=== PATIENT | female | born 1985 | race Caucasian/White ===

== ENCOUNTER 2016-08-24 06:15 | Inpatient (IN) ==
[2016-08-24] MEDS ORDERED: Ringers Solution, Lactated 1,000 ML IVC SCH ×2 (06:45→11:45)
[2016-08-24 06:57] LABS: Basophils % 0.2 %; Eosinophils # 0.2 K/mcL (0.0-0.6); Hematocrit 33.5 % (35.3-44.9); Hemoglobin 10.9 g/dL (11.5-15.4); Immature Granulocytes % 0.4 % (0-4); Lymphocytes # 1.8 K/mcL (0.6-4.6); Mean Corpuscular HGB Conc 32.5 g/dL (31.6-35.5); Mean Corpuscular Hemoglobin 28.3 pg (28.0-33.3); Mean Platelet Volume 10.1 fL (9.4-12.4); Monocytes # 0.6 K/mcL (0.0-1.3); Monocytes % 6.8 %; Neutrophils # 6.7 K/mcL (1.6-8.9); Platelet Count 226 K/mcL (140-400); Red Blood Count 3.85 M/mcL (3.82-4.97); Red Cell Distribution Width 15.3 % (11.5-14.5); Segmented Neutrophils % 71.6 %
--- NOTE | 2016-08-24 07:06 | OB/GYN History & Physical ---
Date of Encounter: 08/24/16 Time of Encounter: 06:54 Assessment and Plan (1) 36 weeks gestation of Current visit: Yes Status: Acute (2) Cervical cerclage suture present in third trimester Current visit: Yes Status: Acute Patient had cerclage placed for incompetent cervix. She has had the same issue with here last 3 prior pregnancies. She is having the cerclage removed in the OR for patient comfort. History of Present Illness Chief complaint: Cerclage Removal HPI: Ms. Hines is a 31 year old female at 36+5 presents to Labor and Delivery for cerclage removal in the OR. Patient had cerclage placement for incompetent cervix. Patient has needed cerclage in her last 4 pregnancies and has requested removal in the OR everytime. Patient reports with her last her placenta was adhered to her uterus and caused significant bleeding with removal. Patient is on 20mg of Prozac daily. Patient's blood type is A+. Patient reports good movement. Patient denies vaginal bleeding, leaking of fluid, contractions, or pain, nausea, vomiting, diarrhea, headache, blurry vision, dysuria. Past Med Surg Social Fam HX - Past Medical History Medical history: non-contributory Psychiatric history: no psych history - Social History Smoking Status: Never smoker Smokeless Tobacco Status: No Alcohol use: none Drug use: none - Family History Mother Family Member Ethnicity: Non- Living Status: Still Living Hx Family Cardiac Disorders: Yes (HTN) Obstetrical History - Pregnancies : 6 Medications and Allergies [facility] + Dha 1 tab PO DAILY 08/24/16 [History] FLUoxetine HCl [Prozac] 1 cap PO DAILY 08/24/16 [History] Allergies lamotrigine [From Lamictal] Adverse Reaction (Intermediate, Verified 08/24/16 06 :59) See Comments patient states her tongue turned black. Review of System OB All systems PM: reviewed and no additional remarkable complaints except as stated Exam - Constitutional Constitutional: well developed, well nourished, no acute distress - HEENT HEENT: EOMI, Mucus Membranes Moist - Neck Neck exam: full ROM, normal inspection - Lungs Respiratory exam: CTAB - Cardiovascular Cardiovascular exam: RRR - Abdomen Abdomen: Present: bowel sounds normal, gravid, non tender (soft) - Extremities Extremities exam: normal inspection Deep Tendon Reflex Grade: 2+ Normal Results Result Diagrams: 08/24/16 06:40 All other labs normal. - VTE Reasons for not Prescribing Prophylaxis: Treatment not Indicated - Low risk for VTE
--- NOTE | 2016-08-24 07:56 | Anesthesia Evaluation PreOp ---
Date of Encounter: 08/24/16 Time of Encounter: 07:52 - Past History Planned Operation: cerclage removal Cardiac History: Denies any Significant Hx Pulmonary History: Denies Any Significant HX TRAFFIC ASSISTANT History: Other (Anxiety/Depression maintained on Prozac) Other Medical History: Denies Any Significant HX Anesthesia History: No Prior Anesthetic Complications, Past Anesthesia (Appy, Ankle Surgery, Cerclage x 4, Cerclage removal x 3, D&C) : Yes (36weeks 5 days) Alcohol Use: none Drug use: none Medications and Allergies [facility] + Dha 1 tab PO DAILY 08/24/16 [History] FLUoxetine HCl [Prozac] 1 cap PO DAILY 08/24/16 [History] Allergies lamotrigine [From Lamictal] Adverse Reaction (Intermediate, Verified 08/24/16 06 :59) See Comments patient states her tongue turned black. - Meds/Allergy Pre-op Review Medications Reviewed: Yes Allergies Reviewed: Yes Beta Blockers on Current Med List: No Anesthesia Results - Labs 08/24/16 06:40 Anesthesia Exam see nursing notes Height: 5'5 Weight: 180# NPO (# of Hours): MNOc - HEENT Pupil (Motor): Pupils equal, EOMI Mallampati: I Teeth: Normal Oral Opening: Greater than 3 - TRAFFIC ASSISTANT LOC: Oriented TRAFFIC ASSISTANT Motor: Normal RUE, Normal LUE, Normal RLE, Normal LLE, Normal Face TRAFFIC ASSISTANT Sensory: Normal: RUE, LUE, RLE, LLE, Face - Cardiac Rhythm: Regular Murmur: None - Pulmonary Breath Sounds: bilateral Clear Respiratory Effort: Symmetrical Anesthesia Assess/Plan ASA Score: 2 (Anxiety/Depression, Term IUP in parturient w/ hx of Labor) Modified Stanton Scale for Level of Consciousness: Cooperative, oriented, and tranquil Anesthetic Plan: MAC Monitoring Plan: Standard Monitors Recovery Plan: PACU Anes Supervising Prov Stmt: Pt seen/evaluated, R&B Discussed, questions answered and consent obtained.Aracelis Barnes MD
[2016-08-24] MEDS ORDERED: Lidocaine -MPF 2% 5 ML VIAL ONE (08:48)
[2016-08-24] MEDS ORDERED: *HR* Propofol 200 MG/20 ML VIAL IVP ONE ×4 (08:48)
--- NOTE | 2016-08-24 08:57 | OB/GYN Procedure Note ---
OB-PILE OPERATOR: Procedure - Diagnosis Date of procedure: 08/24/16 Pre-op diagnosis: Incompetent cervix with cerclage in place Post-op diagnosis: same - Procedure Procedure: Removal double Foy cerclage Surgeon: Ryan Ye Anesthesia Type: Conscious sedation with propofol Estimated blood loss (cc): 5 Fluids: crystalloid Procedure Complications: None Specimens collected: None Disposition: observation Findings: Cervix 4 cm dilated 80% effaced -2 station, negative nitrazine and fern Narrative: Patient's 31-year-old female history of incompetent cervix with double Foy cerclage in place presents at 36 weeks and 2 days for cerclage removal. Patient was very hesitant for cerclage removal in office secondary to anxiety therefore requested removal under conscious sedation. She was wearing operative risks and signed appropriate consent. Description procedure: Patient was taken operating room where propofol was given. She was placed in dorsal lithotomy position. Cervix is visualized and both stitches were noted. Stitches were grasped and pulled upward and cut with scissors. Both sutures were removed without difficulty. Patient did cough during procedure and there was pulling noted within vagina this was fern and nitrazine negative therefore thought to be urine. After procedure cervix was checked was 3-4 simmers dilated a percent effaced and -2 station. All counts are correct patient was taken her room in stable condition.
--- NOTE | 2016-08-24 10:39 | OB/GYN Progress Note ---
Date of Encounter: 08/24/16 Time of Encounter: 10:36 - Assessment and Plan (1) uterine contractions in third trimester, antepartum Current Visit: Yes Status: Acute Pt reports contractions are getting stronger s/p cerclage removal this am. SVE /-1. Continue to monitor at this time. Allow pt to ambulate. Repeat exam in 1-2 hours. (2) 36 weeks gestation of Current Visit: Yes Status: Acute Subjective - Subjective Interval history: Pt reports increasing discomfort with contractions. Antepartum ROS: vaginal bleeding (small amount dark blood), movement normal, contractions, no loss of fluid Objective - Vital Signs Vital Signs: Intake and Output 08/23/16 08/24/16 08/24/16 23:59 07:59 15:59 Other: Weight 81.9 kg Patient Weight 08/24/16 23:59 Weight 81.9 kg - Exam FHR: category 1 FHR comments: NST reactive Abdomen: Present: soft, gravid Uterus: Present: other (contractions palpate moderate intensity). Absent: tenderness Cervical dilation: -1 - Labs Labs: Abnormal lab results Hgb 10.9 g/dL (11.5-15.4) L 08/24/16 06:40 Hct 33.5 % (35.3-44.9) L 08/24/16 06:40 RDW 15.3 % (11.5-14.5) H 08/24/16 06:40
[2016-08-24] MEDS ORDERED: Naloxone 0.4 MG/ML INJ IVP PRN (11:39)
[2016-08-24] MEDS ORDERED: Famotidine 20 MG/2 ML VIAL IVP PRN (11:39)
--- NOTE | 2016-08-24 11:39 | OB Labor Progress Note ---
Date of Encounter: 08/24/16 Time of Encounter: 11:37 Labor Progress Note - Subjective Subjective: Pt reports contractions are getting more regular and more painful. - Cervix Cervix: 5/90/-1 - Heart Tones Heart Tones: Category I - [place]: Q4 - Plan Plan: Pt requesting nubain for pain at this time. Continue to monitor.
[2016-08-24] MEDS ORDERED: *HR* Nalbuphine 20 MG/ML AMPUL IVP PRN (11:40)
[2016-08-24] MEDS ORDERED: Penicillin G Potassium 5,000,000 UNIT in D5% in Water (Mini-Bag+) 100 ML IVPB ONE (14:46)
[2016-08-24] MEDS ORDERED: Epidural Premix (fent/bupiv) 110 ML EP ONE (15:33)
[2016-08-24] MEDS ORDERED: Bupivacaine-MPF 0.25% 10 ML VIAL ONE (15:33)
[2016-08-24] MEDS ORDERED: *HR* FentaNYL (PF) 100 MCG/2 ML VIAL ONE (15:33)
--- NOTE | 2016-08-24 16:32 | Anesthesia Procedures ---
Date of Encounter: 08/24/16 Time of Encounter: 15:45 Procedures: Anesthesia - Epidural/Spinal Patient ID/Chart reviewed: Yes Patient examined: Yes OB Eval: Gestational age: 36 weeks 5 days OB Eval: : 6 OB Eval: Hx Para: 3 OB Eval: Dilated at (cm): 5 OB Eval: Contractions: Non-stressed pattern Consent Obtained: Yes Supplemental Oxygen: None/Room Air Site Prep: Aseptic Technique, Sterile prep and drape, Povidone-Iodine 1% Patient position: upright Local Anesthetic: Lidocaine 1% Amount of Local Anesthetic used: 3 Touhy Needle Gauge: 18 Touhy Needle Depth (cm): 5 Catheter Depth at Skin (cm): 10 Test Dose (1.5% Lido + Epi): Volume given (mls): 3 Test Dose Result: Negative Loading Dose: 0.25% Marcaine (mls): 5 Loading Dose: Fentanyl (mcg): 100 Loading Dose Administered: Thru Catheter Infusion Med: 0.125% Bupivacaine w/ 2 mcg/ml Fentanyl Infusion Rate (mls/hr): 14 (w/ demand bolus of 4mL q20min PRN) Catheter Secured in Place: Tegaderm, Tape Interspace Used: L3-L4 Loss of Resistance (LISA): Yes Blood: No CSF: No Paresthesia: No Vitals + FHT's: Please refer to Susie ALLISON's electronic documentation for VS.
--- NOTE | 2016-08-24 17:31 | OB Labor Progress Note ---
Date of Encounter: 08/24/16 Time of Encounter: 17:29 Labor Progress Note - Subjective Subjective: Pt comfortable with epidural. She does c/o nausea at this time. - Cervix Cervix: 5/90/-1 - Heart Tones Heart Tones: Category I - [place] Home [place]: irregular - Interventions Interventions: AROM of forebag for small amount clear fluid. SROM was noted per RN at 1642. - Plan Plan: Continue to monitor. Zofran for nausea. Will augment with pitocin if needed.
[2016-08-24] MEDS: Ondansetron 4 MG/2 ML VIAL IVP PRN ×2 (17:34→22:16)
[2016-08-24] MEDS ORDERED: Penicillin G Potassium 2,500,000 UNIT in D5% in Water 100 ML IVPB SCH (19:00)
--- NOTE | 2016-08-24 20:02 | Anesthesia Progress Note ---
Date of Encounter: 08/24/16 Time of Encounter: 20:01 Anesthesia Note - Note Note: 08/24/16 20:01 Called to patient bedside to evaluate breakthrough labor pain. Patient describes centrally located suprapubic 10/10 pain. 10mL of 0.125% bupivicaine administered through epidural catheter. Patient reports significant improvement in pain level. VSS.
[2016-08-24] MEDS ORDERED: *HR* Labetalol 20 MG/4 ML SYRINGE IVP ONE (20:18)
[2016-08-24] MEDS ORDERED: Oxytocin 20 units/ LR 1000 mL 20 UNIT/1,000 ML BAG IVC ONE ×2 (20:57→22:20)
--- NOTE | 2016-08-24 22:12 | OB/GYN Procedure Note ---
Delivery - Delivery Date: 08/24/16 Provider: Ryan Ye Intrapartum events: other(please specify) (Terminal bradycardia) Delivery induction: none Delivery monitor: none Anesthesia: epidural Estimated Blood Loss: 100 - Infant (s) Infant A Delivery Date: 08/24/16 Delivery Time: 21:06 Presentation: vertex Position: ALESHA Route of delivery: Gender: Male Viability: Viable Pounds: 7 Ounces: 4 at 1 minute: 8 at 5 mins: 9 Specimens collected: cord blood Placenta: spontaneous Cord: 3 umbilical vessels - Repair Episiotomy: midline Laceration Description: Perineal - 2nd Degree - Complications Delivery complications: none - Disposition Mom disposition: stable in LDR disposition: stable in LDR - Comments Comments: Pt was complete and had terminal bradycardia to 60's for about 2 min therefore midline episiotomy was cut and delivery was achieved with next contraction. weight was 7lb 4oz , apgars are pending. Spontaneous delivery of normal placenta without incident. 2nd degree episiotomy repaired with 3-0 vicryl.
[2016-08-24] MEDS ORDERED: Acetaminophen 325 MG TABLET PO PRN (23:16)
[2016-08-24] MEDS ORDERED: Rho Immune Globulin 1,500 UNIT SYRINGE IM PRN (23:16)
[2016-08-24] MEDS ORDERED: Oxytocin 20 units/ LR 1000 mL 20 UNIT/1,000 ML BAG IVC SCH (23:16)
[2016-08-24] MEDS ORDERED: Ondansetron 4 MG/2 ML VIAL IVP PRN (23:16)
[2016-08-24] MEDS ORDERED: Measles/Mumps/Rubella Vacc 0.5 ML VIAL SQ PRN (23:16)
[2016-08-25] MEDS ORDERED: Ibuprofen 600 MG TABLET PO PRN (04:45)
[2016-08-25] MEDS ORDERED: Famotidine 20 MG/2 ML VIAL IVP SCH (06:00)
[2016-08-25 07:31] LABS: Basophils % 0.1 %; Eosinophils # 0.1 K/mcL (0.0-0.6); Eosinophils % 0.4 %; Hemoglobin 9.7 g/dL (11.5-15.4); Immature Granulocytes % 0.4 % (0-4); Lymphocytes # 1.2 K/mcL (0.6-4.6); Lymphocytes % 9.1 %; Mean Corpuscular HGB Conc 31.3 g/dL (31.6-35.5); Mean Corpuscular Hemoglobin 27.7 pg (28.0-33.3); Mean Corpuscular Volume 88.6 fL (83.0-100.0); Mean Platelet Volume 10.8 fL (9.4-12.4); Monocytes # 0.7 K/mcL (0.0-1.3); Monocytes % 5.3 %; Neutrophils # 11.4 K/mcL (1.6-8.9); Platelet Count 218 K/mcL (140-400); Red Cell Distribution Width 15.4 % (11.5-14.5); Segmented Neutrophils % 84.7 %
--- NOTE | 2016-08-25 08:54 | Discharge Summary ---
Date of Encounter: 08/25/16 Time of Encounter: 08:52 - Discharge Diagnosis (1) delivery Priority: Primary Status: Acute Comments: Minimal lochia, meeting milestones, requests d/c, no pain meds, declines contraception (2) Anemia, Priority: Secondary Status: Chronic Comments: On iron prior to delivery. Continue PP (3) Breast feeding status of mother Priority: Secondary Status: Acute Comments: NB breast feeding well - Discharge Medications Prescriptions: Ferrous Sulfate 325 mg PO BIDWM #60 tab Home Medications: [facility] + Dha 1 tab PO DAILY 08/24/16 [History] FLUoxetine HCl [Prozac] 1 cap PO DAILY 08/24/16 [History] Acetaminophen [Tylenol] 650 mg PO Q6HR PRN tab 08/25/16 [Rx] Docusate [Colace] 100 mg PO BID 08/25/16 [Rx] Ferrous Sulfate 325 mg PO BIDWM #60 tab 08/25/16 [Rx] Ibuprofen [Motrin] 600 mg PO Q6HR PRN tab 08/25/16 [Rx] Allergies/Adverse Reactions: Allergies lamotrigine [From Lamictal] Adverse Reaction (Intermediate, Verified 08/24/16 06 :59) See Comments patient states her tongue turned black. Data Procedures and tests throughout hospitalization: Laboratory Tests 08/24/16 08/24/16 08/25/16 06:40 22:16 06:37 WBC 9.4 13.5 H RBC 3.85 3.50 L Hgb 10.9 L 9.7 L Hct 33.5 L 31.0 L MCV 87.0 88.6 MCH 28.3 27.7 L MCHC 32.5 31.3 L RDW 15.3 H 15.4 H Plt Count 226 218 MPV 10.1 10.8 Immature Gran % 0.4 0.4 Seg Neutrophils % 71.6 84.7 Lymphocytes % 19.0 9.1 Monocytes % 6.8 5.3 Eosinophils % 2.0 0.4 Basophils % 0.2 0.1 Neutrophils # 6.7 11.4 H Lymphocytes # 1.8 1.2 Monocytes # 0.6 0.7 Eosinophils # 0.2 0.1 Basophils # 0.0 0.0 Blood Type A POSITIVE Antibody Screen NEGATIVE Crossmatch See Detail Labs on day of discharge: Labs from last 24 hours 08/25/16 08/24/16 06:37 22:16 WBC 13.5 H RBC 3.50 L Hgb 9.7 L Hct 31.0 L MCV 88.6 MCH 27.7 L MCHC 31.3 L RDW 15.4 H Plt Count 218 MPV 10.8 Immature Gran % 0.4 Seg Neutrophils % 84.7 Lymphocytes % 9.1 Monocytes % 5.3 Eosinophils % 0.4 Basophils % 0.1 Neutrophils # 11.4 H Lymphocytes # 1.2 Monocytes # 0.7 Eosinophils # 0.1 Basophils # 0.0 Blood Type A POSITIVE Antibody Screen NEGATIVE Crossmatch See Detail Date of admission: 08/24/16 12:18 Primary care physician: Deb Shukla, Consults: 08/24/16 23:16 Consult to Digital Composer [CONS] Routine Comment: Vaginal delivery, consult needed Discharging clinician: Vangie Cox Anticipated date of discharge: 08/25/16 - Patient Status Disposition: Home, Self-Care Condition: Good Functional capacity at discharge: independent ambulation Overall status at discharge: patient is progressing back to baseline - Discharge Instructions Follow Up With: Deb Shukla, DR[employer] STENCILER [Primary Care Provider] - Additional Instructions: LABOR AND DELIVERY DISCHARGE INSTRUCTIONS Signs and Symptoms to be Reported to your Doctor Immediately: * Sudden gush, continuous or intermittent lead of fluid from vagina (note the time of gush and color of fluid) * Onset of bright red vaginal bleeding with or without pain (if you had a vaginal exam during this visit you may notice some dark red spotting. This is normal.) * Lower abdominal cramping or backache that is premenstrual-like feeling. * More than 6 contractions in one hour. * Burning during urination, having to urinate more frequently or pain in your mid-back. * A change in the baby's activity. This could be an increase or decrease in activity. * Severe headache which does not go away with tylenol. * Sudden swelling in the face, hands, arms and/or legs. * Upper abdominal pain - sometimes associated with heartburn or nausea and is not relieved by Maalox, Mylanta or Tums. * Dizziness or blurred vision or visual disturbances (seeing stars/lights). * Kick Counts One hour after a meal, lay down on one side in a quiet place. Count the number of lexi the baby moves during an hour. If less than 6 movements, notify your physician. Diet: *Force fluids - 8-10 tall glasses of fluid per day. May include popsicles and jello. *Limit caffeine - this includes chocolate, coffee, tea, any soft drink containing such as all fabiano, Gaudencio Yellow and Mountain Dew - Diet and Activity Activity: increase activity as tolerated Diet: regular diet Hospital Course Procedures: Reason for admission: labor Delivery: Episiotomy: midline Other procedures: none complications: none Discharge diagnosis: delivery baby: male Hospital course: Complicated by anemia, pt asymptomatic, reports as chronic condition on iron during Time Attestation: Total time spent providing and/or coordinating discharge services: Time Spent: Less than 30 minutes Exam - Constitutional Vitals: Temp Pulse Resp BP Pulse Ox 98.7 F 68 12 115/70 97 08/25/16 01:35 08/25/16 01:35 08/25/16 01:35 08/25/16 01:35 08/25/16 01:35 General appearance IM: cooperative, A&O X 3, pleasant, no acute distress - Respiratory Respiratory exam: Absent: respiratory distress - Cardiovascular Cardiovascular exam IM: Absent: irregular rhythm - GI/Abdominal GI/Abdominal exam IM: normal bowel sounds, soft, no peritoneal signs - Rectal Rectal exam: deferred - Uterine Tone: Firm Uterus Position: 2 Fingers Below Umbilicus, Midline - Extremities Exam Extremities exam IM: Absent: calf tenderness - Neurological Exam Neurological exam: alert, no focal deficits Additional comments: Iterus NT, Cx closed and thick, no clots, mild uterine decensus and 1st degree cystocele
[2016-08-25] MEDS ORDERED: DHA PO SCH (09:00)
[2016-08-25] MEDS ORDERED: FLUoxetine 20 MG CAPSULE PO SCH (09:00)
[2016-08-25] MEDS ORDERED: Prenatal Vit/FA 1 EACH TABLET PO SCH (09:00)
[2016-08-25] MEDS ORDERED: [UNRECOGNIZED DRUG - OTHER] PO SCH (09:00)
[2016-08-25 10:11] VITALS: BP 121/73
== END 2016-08-25 15:00 | disposition home or self-care (01) | DRG 560 ==
LOC: SAMDAY 06:15 → 1NENULAB 06:48 → 1NENUOBS 23:46
PROVIDERS: ADMIT Obstetrics & Gynecology; ATTEND Obstetrics & Gynecology